=== PATIENT | female | born 1975 | race Caucasian/White ===

== ENCOUNTER 2016-10-24 14:43 | Emergency (ER) | payer OTHER ==
[~2016-10-24] VITALS: Ht 149.9 cm; Wt 51.8 kg
[2016-10-24] MEDS ORDERED: INDOCIN50 MG PO (17:04)
[2016-10-24] MEDS ORDERED: LIDOCAINE20 MG/1 M5 PO (17:04)
[2016-10-24] MEDS ORDERED: PEN-VEE K,VEET500 MG PO (17:04)
[2016-10-24 17:22] VITALS: BP 116/86
== END 2016-10-24 17:24 | disposition home or self-care (01) ==
LOC: RME 14:43 → EME 14:43 → RME 17:24
DX: K08.89 Other specified disorders of teeth and supporting structures (principal); K02.9 Dental caries, unspecified; K03.81 Cracked tooth; F17.200 Nicotine dependence, unspecified, uncomplicated
CPT/HCPCS: 99281; 99285